=== PATIENT | male | born 1935 | race Caucasian/White ===

== ENCOUNTER → 2017-03-04 06:32 | Day surgery (SDC) | payer OTHER ==
[~2017-03-04 06:32] MED LIST: Acetaminophen TAB* 325 MG PO PRN; Buffered Lidocaine 1% SYRIN* 3 ML/SYR SYRINGE INTRADERM ONE; Cyclopentolate 1% OPTH.SOL* 2 ML BTL ONE; Flurbiprofen 0.03% OPTH.SOL* 2.5 ML BTL ONE; Lidocaine 1% MPF* 2 ML VIAL ONE; Lidocaine 2% EPI 1:200000 MPF* 20 ML VIAL ONE; Midazolam* 1 MG/ML 2 ML VIAL (2 MG) ONE; Neomycin/Polymy/Dex OPTH.SUSP* MAXITROL 0.1% 5 ML ONE; Phenylephrine 2.5% OPTH.SOL* 2 ML BTL ONE; Povidone Iodine 5% OPTH* 30 ML BTL ONE; Proparacaine 0.5% OPHTH.SOL* 15 ML BTL ONE; acetaZOLAMIDE TAB* 250 MG ONE
[2017-03-04 08:42] VITALS: BP 138/59
--- NOTE | 2017-03-05 03:05 | OP ---
DATE OF OPERATION: 03/04/17 - [facility] DATE OF : 39 SURGEON: Thomas Yao M.D. PREOPERATIVE DIAGNOSIS: Cataract, left eye. POSTOPERATIVE DIAGNOSIS: Cataract, left eye. OPERATIVE PROCEDURE: Phacoemulsification, left eye, with IOL. DESCRIPTION OF PROCEDURE: The patient was brought to the operating room after being given 1/2% Alcaine with epinephrine drops in the preoperative area. The eye was prepped and draped in the usual sterile fashion. Sterile drape and eyelid speculum were placed. Again, topical 1/2% Alcaine with epinephrine was given. A paracentesis incision was made at the 3 o'clock position with the No.75 blade. Clear cornea incision 2.2 x 2.2-mm was created at the 6 o'clock position starting at the anterior limbus using the 2.2-mm keratome. The anterior chamber was irrigated with 0.4 mL of 1% non-preservative intracameral lidocaine and filled with DisCoVisc. A capsulorrhexis was completed using the cystotome and the Utrata forceps. Hydrodissection was performed with balanced salt solution. The lens nucleus was removed with the Phacoemulsification handpiece without incident. Cortex was removed with the irrigation-aspiration handpiece. The capsular bag was re-inflated using DisCoVisc and an [id number] [id number] diopter implant was inserted with the shooter and oriented to the 172-degree meridian. Horizontal reference ervin were made in the preoperative area with the patient in seated position. A Malyugin ring was used to dilate the pupil prior to capsulorrhexis, removed after insertion of the lens. Indication for complex cataract surgery, iris abnormalities requiring pupil dilation device. The irrigation-aspiration hand-piece was used to remove all residual DisCoVisc. The eye was refilled with balanced salt solution and the wound checked and found to be watertight. Topical Maxitrol drops were given. [id number]/[facility] #: [id number] [facility], [place]
== END | disposition home or self-care (01) ==
LOC: OREAST 06:32
PROVIDERS: ATTEND Specialist
DX: H25.812 Combined forms of age-related cataract, left eye (principal); H43.813 Vitreous degeneration, bilateral; I10 Essential (primary) hypertension; C61 Malignant neoplasm of prostate; J01.90 Acute sinusitis, unspecified; M19.90 Unspecified osteoarthritis, unspecified site
CPT/HCPCS: J2250; V2787

== ENCOUNTER → 2017-03-11 09:48 | Day surgery (SDC) | payer OTHER ==
[~2017-03-11 09:48] MED LIST changes: +Propofol* 10 MG/ML 20 ML BTL IV PUSH ONE; +fentaNYL* 50 MCG/ML 2 ML VIAL (100 MCG VIAL) ONE
[2017-03-11 13:12] VITALS: BP 128/67
--- NOTE | 2017-03-12 02:35 | OP ---
DATE OF OPERATION: 03/11/17 - [facility] DATE OF : 39 SURGEON: Thomas Yao MD PREOPERATIVE DIAGNOSIS: Cataract, right eye. POSTOPERATIVE DIAGNOSIS: Cataract, right eye. OPERATIVE PROCEDURE: Phacoemulsification, right eye with IOL. DESCRIPTION OF PROCEDURE: The patient was brought to the operating room after being given 1/2% Alcaine with epinephrine drops in the preoperative area. The eye was prepped and draped in the usual sterile fashion. Sterile drape and eyelid speculum were placed. Again, topical 1/2% Alcaine with epinephrine was given. A paracentesis incision was made at the 9 o'clock position with the No.75 blade. Clear cornea incision 2.2 x 2.2-mm was created at the 12 o'clock position starting at the anterior limbus using the 2.2-mm keratome. The anterior chamber was irrigated with 0.4 mL of 1% non-preservative intracameral lidocaine and filled with DisCoVisc. A capsulorrhexis was completed using the cystotome and the Utrata forceps. Hydrodissection was performed with balanced salt solution. The lens nucleus was removed with the Phacoemulsification handpiece without incident. Cortex was removed with the irrigation-aspiration handpiece. The capsular bag was re-inflated using DisCoVisc and an implant [id number] was inserted with the shooter, oriented to the 5-degree meridian. The pupils was only about 3 mm prior to capsulorrhexis, so a Malyugin ring was used to dilate the pupil prior to capsulorrhexis, removed after insertion of the lens. The 5-degree meridian was in reference to horizontal reference ervin made with the patient in a seated position in the preoperative area. The irrigation-aspiration handpiece was used to remove all residual DisCoVisc. The eye was refilled with balanced salt solution and the wound checked and found to be watertight. Topical Maxitrol drops were given. Indication for complex cataract surgery is iris abnormalities requiring pupil dilation device. [id number]/[facility] #: [id number] [facility]
== END | disposition home or self-care (01) ==
LOC: OREAST 09:48
PROVIDERS: ATTEND Specialist
DX: H25.811 Combined forms of age-related cataract, right eye (principal); Q13.2 Other congenital malformations of iris; H43.813 Vitreous degeneration, bilateral; Z87.891 Personal history of nicotine dependence; C61 Malignant neoplasm of prostate; I10 Essential (primary) hypertension; J01.90 Acute sinusitis, unspecified
CPT/HCPCS: J2250; J2704; J3010; V2787

== ENCOUNTER 2017-04-18 12:29 | Emergency (ER) | payer OTHER ==
[2017-04-18 13:15] VITALS: BP 125/79
[2017-04-18] MEDS ORDERED: Tetan/Diph/Pertus SYR(Tdap)* 0.5 ML SYR(BOOSTRIX) use SYR IM ONE (13:46)
--- NOTE | 2017-04-18 13:46 | UC ---
Skin Complaint HPI - History of Current Complaint Chief Complaint: UCLaceration Time Seen by Provider: 04/18/17 13:38 Stated Complaint: TOE LACERATION Hx Obtained From: Patient Onset/Duration: Sudden Onset - cut tip of left 4th toe with toe nail scissors this am, had trouble making wound stop bleeding Aggravating: Touch Alleviating: Cold Associated Signs & Symptoms: Positive: Negative - Allergy/Home Medications Allergies/Adverse Reactions: Allergies Allergy/AdvReac Type Severity Reaction Status Date / Time Amoxicillin [From Augmentin] Allergy Unknown Verified 03/11/17 10:18 Reaction Details Clavulanic Acid Allergy Unknown Verified 03/11/17 10:18 [From Augmentin] Reaction Details SEASONAL ALLERGIES Allergy Runny Nose Uncoded 03/11/17 10:18 Review of Systems Constitutional: Negative Respiratory: Negative Cardiovascular: Negative Gastrointestinal: Negative Musculoskeletal: Negative Neurological: Negative All Other Systems Reviewed And Are Negative: Yes PMH/Surg Hx/FS Hx/Imm Hx Endocrine History Of: Denies: Diabetes Cardiovascular History Of: Reports: Hypertension - PT. STATES CONTROLLED Denies: Pacemaker/ICD, Myocardial Infarction Respiratory History Of: Denies: Asthma GI/ History Of: Denies: Renal Disease Psychological History Of: Denies: Anxiety - Surgical History Surgical History: Yes Surgery Procedure, Year, and Place: LEFT Hernia repair (Inguinal). prostate markers 2015 PLACED PRIOR TO RAD [place] - Family History Known Family History: Positive: Hypertension - Social History Occupation: Retired Lives: With Family Alcohol Use: Occasionally Alcohol Amount: 1 glass of wine q evening Substance Use Type: None Smoking Status (MU): Former Smoker Type: Cigarettes Amount Used/How Often: 1 pack q day Length of Time of Smoking/Using Tobacco: 40 YEARS Have You Smoked in the Last Year: No When Did the Patient Quit Smoking/Using Tobacco: 2000 Household Exposure Type: Cigarettes - Immunization History Most Recent Influenza Vaccination: 2013 Most Recent Tetanus Shot: unk Most Recent Pneumonia Vaccination: Nov Physical Exam Triage Information Reviewed: Yes Appearance: Well-Appearing, No Pain Distress, Well-Nourished Vital Signs: Initial Vital Signs Temp 97.4 F 04/18/17 13:10 Pulse 64 04/18/17 13:10 Resp 18 04/18/17 13:10 BP 125/79 04/18/17 13:10 Pulse Ox 96 04/18/17 13:10 Vital Signs Reviewed: Yes Respiratory Exam: Normal Cardiovascular Exam: Normal Abdominal Exam: Normal Psychological Exam: Normal Skin Exam: Other - superficial avulsion tip L 4th toe, no active bleeding on exam Course/Dx - Differential Diagnoses - Skin Complaint Differential Diagnoses: Other - abrasion, laceration, avulsion - Diagnoses Provider Diagnoses: minor avulsion Left 4th toe Discharge - Discharge Plan Condition: Good Disposition: HOME Patient Education Materials: Abrasion (ED) Referrals: Michael Booth MD [Primary Care Provider] - 2 Days (for recheck if needed) Additional Instructions: keep wound clean and dry cover with clean bandaid until healed
== END 2017-04-18 14:05 | disposition home or self-care (01) ==
LOC: UCEAST 12:29
DX: S91.115A Laceration without foreign body of left lesser toe(s) without damage to nail, initial encounter (principal); W45.8XXA Other foreign body or object entering through skin, initial encounter; Y93.F9 Activity, other caregiving; Z87.891 Personal history of nicotine dependence
CPT/HCPCS: 90715; 99211; G0463

== ENCOUNTER 2022-01-25 06:56 | Observation (INO) ==
[2022-01-25 07:38] LABS: ABS Eosinophils 0.4 10^3/ul (0-0.6); ABS Monocytes 0.4 10^3/ul (0-0.8); ABS Neutrophils 2.6 10^3/ul (1.5-7.7); Eosinophil % 8.5 %; Hematocrit 37 % (42-52); Hemoglobin 12.5 g/dL (14.0-18.0); Lymphocyte % 23.1 %; Mean Corpuscular HGB Conc 34 g/dL (31-36); Mean Corpuscular Hemoglobin 33 pg (27-31); Mean Corpuscular Volume 98 fL (80-94); Platelet Count 171 10^3/uL (150-450); Red Blood Count 3.78 10^6 /uL (4.18-5.48); Red Cell Distribution Width 13 % (10-15); White Blood Count 4.4 10^3/uL (3.5-10.8)
[2022-01-25] MEDS ORDERED: NS 0.9% 1000 ml BAG 1,000 ML IV ONE ×2 (07:48→09:48)
[2022-01-25 07:58] LABS: ALT 16 U/L (7-52); AST 18 U/L (13-39); Albumin 3.8 g/dL (3.2-5.2); Albumin/Globulin Ratio 1.5 (1-3); Alkaline Phosphatase 47 U/L (35-149); Anion Gap 6 mmol/L (2-11); Blood Urea Nitrogen 18 mg/dL (6-24); CO2 Carbon Dioxide 28 mmol/L (22-32); Calcium 9.2 mg/dL (8.6-10.3); Chloride 104 mmol/L (101-111); Globulin 2.6 g/dL (2-4); Glucose 127 mg/dL (70-100); Magnesium 1.7 mg/dL (1.9-2.7); Potassium 4.2 mmol/L (3.5-5.0); Sodium 138 mmol/L (135-145); Total Protein 6.4 g/dL (6.4-8.9); eGFR CKD-EPI 68.4 (>60)
[2022-01-25] MEDS ORDERED: Iohexol 350 (CONTRAST) 500 ML MDV IV ONE (08:05)
[2022-01-25] MEDS ORDERED: Magnesium Sulfate 2 gm BAG 2 GM/50 ML BAG IVPB ONE (08:07)
[2022-01-25 09:31] LABS: Urine Appearance Clear; Urine Bilirubin Negative (Negative); Urine Blood Negative (Negative); Urine Color Yellow; Urine Glucose Negative (Negative); Urine Ketones Negative (Negative); Urine Nitrite Negative (Negative); Urine Protein Negative (Negative); Urine Specific Gravity 1.035 (1.002-1.030); Urine Urobilinogen Negative (Negative)
[2022-01-25 12:51] LABS: C Reactive Protein 1.31 mg/L (<8.01)
[2022-01-25 13:39] LABS: Folate > 20.00 ng/mL (5.90-24.80)
[2022-01-25 13:40] LABS: Vitamin B12 325 pg/mL (180-914)
[2022-01-25] MEDS: Aspirin EC 81 mg TAB.EC (enteric coated) PO SCH (14:07)
[2022-01-25] MEDS ORDERED: Cyanocobalamin INJ 1,000 MCG/ML VIAL 1 ML VIAL IM ONE (14:27)
[2022-01-25] MEDS: Enoxaparin 40 MG/0.4 ML SYR SUBCUT SCH (15:30)
[2022-01-25] MEDS: CMC:Simvastatin 20 mg TAB (NF) PO SCH (21:24)
[2022-01-26 06:54] LABS: Hematocrit 35 % (42-52); Mean Corpuscular HGB Conc 34 g/dL (31-36); Mean Corpuscular Hemoglobin 33 pg (27-31); Mean Corpuscular Volume 98 fL (80-94); Mean Platelet Volume 8.6 fL (7.4-10.4); Platelet Count 172 10^3/uL (150-450); Red Blood Count 3.61 10^6 /uL (4.18-5.48); Red Cell Distribution Width 13 % (10-15); White Blood Count 4.1 10^3/uL (3.5-10.8)
[2022-01-26 06:59] LABS: Calcium 9.1 mg/dL (8.6-10.3); eGFR CKD-EPI 83.1 (>60)
[2022-01-26] MEDS: Aspirin EC 81 mg TAB.EC (enteric coated) PO SCH (09:13)
[2022-01-26] MEDS: Enoxaparin 40 MG/0.4 ML SYR SUBCUT SCH (13:04)
[2022-01-26] MEDS: CMC:Simvastatin 20 mg TAB (NF) PO SCH (20:49)
[2022-01-27] MEDS: Aspirin EC 81 mg TAB.EC (enteric coated) PO SCH (09:41)
[2022-01-27 11:35] VITALS: BP 122/55
[2022-01-27] MEDS: Enoxaparin 40 MG/0.4 ML SYR SUBCUT SCH (12:36)
[2022-01-27] MEDS ORDERED: Gadoteridol (CONTRAST) 279.3 MG/ML 10 ML IV ONE (14:08)
== END 2022-01-27 17:45 | disposition home or self-care (01) ==
LOC: EDHOLD 06:56 → ED 06:56 → SUATTDRO 15:34 → MED 19:16
PROVIDERS: ADMIT Student in an Organized Health Care Education/Training Program; ATTEND Hospitalist